=== PATIENT | female | born 2000 | race Caucasian/White ===

== ENCOUNTER 2020-03-22 03:23 | Emergency (ER) | payer SELFPAY ==
[2020-03-22 03:30] VITALS: BP 122/79; PULSE 74; RESP 20; TEMP 36.4; O2SAT 98
--- NOTE | 2020-03-22 03:32 | ED.FEMALEGU ---
HPI - Female Genitourinary General Chief complaint: Urogenital-Female Stated complaint: burning with urination Time Seen by Provider: 03/22/20 03:31 Source: patient Mode of arrival: ambulatory Limitations: no limitations History of Present Illness HPI Narrative: Patient is a 19-year-old female with a history of recurrent urinary tract infections who presents for evaluation of dysuria and pelvic pressure. Patient also with frequency and urgency. Symptoms started yesterday and have worsened throughout the morning. Patient started some [id number] cranberry pills without improvement in her symptoms. She denies nausea, vomiting, fever or chills. No flank pain. Patient states she gets urinary tract infections monthly. She had previously been following with an [employer] for further work-up of this but due to financial barriers and loss of insurance was unable to obtain additional work-up. Patient reports she is sexually active with one partner over the past 5 years and has no history of sexually transmitted infection. She denies vaginal discharge or vaginal bleeding. Related Data Allergies Allergy/AdvReac Type Severity Reaction Status Date / Time No Known Allergies Allergy Verified 03/22/20 03:24 Review of Systems Review of Systems: Narrative: CONSTITUTIONAL: Denies fever CARDIOVASCULAR: Denies chest pain RESPIRATORY: Denies cough or dyspnea. GASTROINTESTINAL: Denies abdominal pain, reports suprapubic pressure : Reports dysuria, frequency and urgency SKIN: Denies rash MUSCULOSKELETAL: Denies back pain NEUROLOGIC: Denies headache PMFSH Past Medical History Medical History Recurrent UTI Social History Social History (Updated 03/22/20 @ 04:08 by Tanika Cespedes MD) Smoking status: Never smoker Alcohol intake: never Substance use: never Gender identity (if verbalized by the patient): Female Exam Narrative: Exam Narrative: GENERAL: Awake, alert, conversant, tearful HEAD: Normocephalic, atraumatic. EYES: PERRLA and EOMI. ENT: Nares clear, no rhinorrhea or epistaxis. Mucous membranes moist. NECK: Supple. CHEST: No respiratory distress, breathing even and non labored HEART: Regular rate, sinus rhythm ABDOMEN:Non distended, mild suprapubic tenderness, no rebound, no guarding, no flank tenderness EXTREMITIES: Normal range of motion. No edema. SKIN: Warm, dry, no rash. NEURO:No focal deficits. Alert and oriented x3 Course Vital Signs Vital signs: Vital Signs Temperature 36.4 C L 03/22/20 03:30 Pulse Rate 74 03/22/20 03:30 Respiratory Rate 20 03/22/20 03:30 Blood Pressure 122/79 03/22/20 03:30 Pulse Oximetry 98 03/22/20 03:30 Temperature 36.4 C L 03/22/20 03:30 Pulse Rate 74 03/22/20 03:30 Respiratory Rate 20 03/22/20 03:30 Blood Pressure 122/79 03/22/20 03:30 Pulse Oximetry 98 03/22/20 03:30 MDM - Female Genitourinary MDM Narrative Medical decision making narrative: Patient presented for evaluation of dysuria, urgency and frequency in the setting of recurrent urinary tract infections. Patient not currently on any antibiotics. At the time of assessment, patient is hemodynamically stable, no fever, no tachycardia, no flank pain. No systemic symptoms to be concerning for pyelonephritis. Urinalysis confirms urinary tract infection. Patient is not having any vaginal discharge, vaginal bleeding and has no other risk factors for sexually transmitted infection. Given appearance of urinalysis, will prescribe Keflex. Patient given follow-up with a primary care provider. Also prescribe medication to help with symptom management. She is advised to return should her symptoms change or worsen. Differential Diagnosis Differential diagnosis: Likely urinary tract infection and cystitis Lab Data Labs: Lab Results 03/22/20 Range/Units 03:45 Urine Color Yellow (Yellow) Urine Appearance Turbid H (Clear) Urin
[2020-03-22 04:04] LABS: Add Urine Microscopic? YES; Appearance Urine Turbid (Clear); Bilirubin Urine Negative (Negative); Blood Urine 3+ (Negative); Color Urine Yellow (Yellow); Glucose Urine UA Negative (Negative); Ketones Urine Negative (Negative); Leukocyte Esterase Ur 3+ LEU/UL (Negative); Mucus Urine Rare /lpf; Nitrate Urine Negative (Negative); Protein Urine 2+ mg/dL (Negative); RBC Urine >75 /hpf (0-2); Specific Grav Ur 1.019 (1.001-1.035); Squamous Epithelial Cell Urine Many /hpf (Few); Urobilinogen Urine Negative mg/dL (<2.0); WBC Urine >75 /hpf
[2020-03-22] MEDS: PHENAZOPYRIDINE HCL 100 MG TABLET 200 MG PO (04:24)
[2020-03-22] MEDS: ACETAMINOPHEN 500 MG TABLET 1000 MG PO (04:24)
[2020-03-22] MEDS: CEPHALEXIN SUSPENSION 500 MG/10 ML UDBTL PO (04:43)
== END 2020-03-22 04:47 | disposition home or self-care (01) ==
PROVIDERS: Emergency Provider Emergency Medicine
DX: N30.01 Acute cystitis with hematuria (principal)
CPT/HCPCS: 81001; 81025; 87086; 87088; 99283; A9270

== ENCOUNTER 2021-12-09 16:08 | Emergency (ER) | payer OTHER, SELFPAY ==
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
[2021-12-09 16:14] VITALS: BP 141/96; PULSE 92; RESP 18; TEMP 36.7; O2SAT 100
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
[2021-12-09 18:44] VITALS: BP 105/83; RESP 16; O2SAT 100
== END 2021-12-09 18:51 | disposition home or self-care (01) ==
PROVIDERS: Emergency Provider Emergency Medicine
DX: S09.93XA Unspecified injury of face, initial encounter (principal); Z87.440 Personal history of urinary (tract) infections; K05.6 Periodontal disease, unspecified; V43.52XA Car driver injured in collision with other type car in traffic accident, initial encounter
CPT/HCPCS: 70450; 70486; 72125; 99284